=== PATIENT | female | born 1945 | race Caucasian/White ===

== ENCOUNTER 2016-12-30 21:37 | Emergency (ER) | payer MEDICARE, MEDICAID ==
[~2016-12-30] VITALS: Ht 160 cm; Wt 100.7 kg
[~2016-12-30 21:37] MED LIST: /ESOM40CA; /GLIM4TA OR; /PANT40TA OR; AMLO5TAB2 PO; ASPI325T; ASPI325T OR; ASPI81TA63; CALC1TAB21 PO; CALCI-CHEW OR; CARB25TA PO; CIPR500T19 PO; CLOP75TA2 PO; ENAL10TA2 OR; FURO20TA2 PO; GARLIC OIL OR; GLUC1000 OR; GLUC500T3 OR; INSUDET SC; IRBE150T12 PO; IRON CR; LANTUS INSULIN; LASI20TA OR; LEVEMIR FLEXPEN SC; MAGN500T2 OR; METF1000 PO; MIRA3350 PO; OMEGA-3 FISH OIL OR; PANT40TA2 PO; PLAV75TA2; POTA10CA PO; RITA5TAB OR; RITALIN OR; ROPI0.5T PO; SIMV10TA2 PO; SIMV40TA2 OR; SOTA80TA2 PO; SOTALOL OR; TRI-FLEX OR; VICT18IN SC; VIT D OR; VIT E OR; [UNRECOGNIZED DRUG - OTHER] OR; ciprofloxacin OR; ritalin OR
[2016-12-30] MEDS ORDERED: MORPHINE 4 MG/ML 1ML SYRINGE IV ONE (23:00)
--- NOTE | 2016-12-30 23:50 | REPUSA ---
CT of the head Clinical history: Headache. Trauma. Protocol: Multiple axial CT images obtained with 5 mm slice thickness were obtained through the head without administration of contrast. Comparison: 03/19/2016 Findings: The ventricles and sulci are symmetric but prominent in size bilaterally. There are periven tricular areas of low attenuation throughout the deep white matter. There is no evidence of acute hem orrhage or infarct. There is no midline shift, mass effect, or extra-axial fluid collection. The osse ous structures are unremarkable. The visualized paranasal sinuses and mastoid air cells are clear. Impression: No acute hemorrhage or infarct. Findings are consistent with moderate age-related atrophy and chronic small vessel ischemic disease.
--- NOTE | 2016-12-30 23:50 | REPUSA ---
CT of the cervical spine Clinical history: Pain. Fall. Technique: Multiple axial CT images were obtained through the cervical spine without administration o f contrast. Coronal and sagittal 3-D reconstructed images were also obtained. Comparison: None. Findings: The cervical vertebral bodies are in satisfactory positioning and alignment. No fractures or dislocat ions are demonstrated. Congenital unfused anterior arch of C1 is noted. The odontoid process is inta ct. There is moderate degenerative disc disease at C5/C6 and C6/C7. Intervertebral disc spaces are ot herwise well-maintained. There is no evidence of facet subluxation. The neural foramen appear grossly patent. The cervical cranial junction is intact. The cervical spinal canal demonstrates normal calib er and contour without evidence of spinal stenosis. The surrounding soft tissues are within normal li mits. Impression: No acute fracture or traumatic injury. Mild spondylosis as described.
[2016-12-31 00:11] LABS: BASO % 0.2 % (0.0-1.0); EOS # 0.1 K/mm3 (0.0-0.50); EOS % 0.7 % (0.0-3.0); LARGE UNSTAINED CELL # 0.1 K/mm3 (0.0-0.4); LYMPH # 0.8 K/mm3 (1.5-4.5); LYMPH % 8.3 % (24.0-44.0); MEAN CORPUSCULAR HEMOGLOBIN 28.7 pg (27.0-33.0); MEAN CORPUSCULAR HGB CONC 32.4 g/dl (32.0-36.5); MEAN CORPUSCULAR VOLUME 88.6 fl (80.0-96.0); MONO # 0.4 K/mm3 (0.0-0.8); MONO % 4.2 % (0.0-5.0); NEUTROPHILS # 7.9 K/mm3 (1.8-7.7); NEUTROPHILS % 85.6 % (36.0-66.0); PLATELET COUNT, AUTOMATED 113 k/mm3 (150-450); RED CELL DISTRIBUTION WIDTH 16.2 % (11.5-14.5); WHITE BLOOD COUNT 9.3 K/mm3 (4.0-10.0)
[2016-12-31] MEDS ORDERED: MORPHINE 4 MG/ML 1ML SYRINGE IV ONE (00:15)
[2016-12-31 00:50] LABS: ANION GAP 11 MEQ/L (8-16); BLOOD UREA NITROGEN 15 MG/DL (7-18); CALCIUM LEVEL 8.7 MG/DL (8.8-10.2); CARBON DIOXIDE LEVEL 22 MEQ/L (21-32); CHLORIDE LEVEL 107 MEQ/L (98-107); CREATININE FOR GFR 0.73 MG/DL (0.55-1.02); GLOMERULAR FILTRATION RATE > 60.0 (>39); GLUCOSE, FASTING 214 MG/DL (83-110); SODIUM LEVEL 140 MEQ/L (136-145)
--- NOTE | 2016-12-31 01:30 | REPUSA ---
CT of the pelvis with contrast Clinical statement: Pain. Trauma. Technique: Multiple axial CT images were obtained from the iliac crests through the floor of the pelv is utilizing 5 mm axial slices after administration of oral and nonionic intravenous contrast. [place] l and sagittal reconstructions were also obtained. No comparison is available. Findings: There is severe comminuted, displaced fractures of the right acetabulum, involving the anterior, medi al, and posterior rider of the right hip joint. The fracture extending superiorly through the right i liac bone. The right proximal femur is subluxed superiorly into the right acetabulum. Large amount of surrounding soft tissue swelling is noted. No discrete femoral fracture is identified. Diffuse osteo penia is appreciated. The left hip joint appears unremarkable. The sacroiliac joints are within nelly l limits. There is a 9 mm anterior spondylolisthesis of L5 upon S1, caused by bilateral pars interart icularis defects. The bowel is unremarkable, with no obstructive or inflammatory changes. The urinary bladder is within normal limits. The other pelvic structures appear grossly intact. There is no evid ence of pelvic lymphadenopathy or ascites. . Impression: . 1. Comminuted, displaced fractures of the right acetabulum and right iliac bone, involving the anteri or, medial, and posterior rider of the right hip joint. Superior subluxation of the right femur into the acetabulum is noted. Soft tissue swelling around the right hip joint is also appreciated. 2. The left hip joint appears unremarkable.
--- NOTE | 2016-12-31 01:30 | REPUSA ---
CT of the right hip without contrast Clinical statement: Pain. Trauma. Technique: Multiple axial CT images were obtained with 5 mm cuts th rough the right hip without administration of contrast. Coronal and sagittal reconstructions were als o obtained. No comparison is available. Findings: There is a severe, comminuted fracture of the right pelvis involving the right iliac bone a nd right acetabulum. Displaced fractures involving the anterior, medial, and posterior rider of the r ight acetabulum are appreciated, with superior subluxation of the right femur into the hip joint. Obl ique fracture is seen extend superiorly into the right iliac bone is well. The proximal femur is mynor sly unremarkable. The joint space is narrowed. A small joint effusion is noted. Surrounding soft tiss ue swelling is appreciated. Impression: Severely comminuted, displaced fractures of the right acetabulum and right iliac bone as described. S uperior subluxation and impaction of the right femur is noted, although no fracture within the femur is appreciated at this time.
[2016-12-31] MEDS: MORPHINE 4 MG/ML 1ML SYRINGE IV PRN ×2 (02:21→03:22)
[2016-12-31 03:35] VITALS: BP 142/77
--- NOTE | 2016-12-31 08:14 | REP ---
Clinical: Trauma. Technique: AP view of the pelvis with neutral and frog lateral views of the right hip. Findings: Age-related osteopenia and degenerative changes are appreciated. Medial displacement of the femoral head in relation to the acetabulum suggests poorly defined underlying fractures involving the acetabulum including iliac, ischium and likely pubic bones. Impression: Suspected fractures involving the right acetabulum and associated iliac, ischium and pubic bones. Signed by Kip Chen MD 12/31/2016 08:06 A
--- NOTE | 2016-12-31 08:16 | REP ---
Clinical: Trauma. Technique: AP and frog lateral views of the right femur. Findings: The femur appears intact. Acute fractures involving the acetabulum including the pubic, ischium and iliac bones are poorly identified. Impression: Right femur intact. Comminuted fractures involving the acetabulum suspected. Signed by Kip Chen MD 12/31/2016 08:07 A
== END 2016-12-31 03:39 | disposition short-term general hospital (02) ==
LOC: EDBD 21:37 → M ED 23:42
DX: S32.401A Unspecified fracture of right acetabulum, initial encounter for closed fracture (principal); S32.301A Unspecified fracture of right ilium, initial encounter for closed fracture; W18.11XA Fall from or off toilet without subsequent striking against object, initial encounter; Y92.012 Bathroom of single-family (private) house as the place of occurrence of the external cause; Y93.89 Activity, other specified; Y99.8 Other external cause status; E11.9 Type 2 diabetes mellitus without complications; I10 Essential (primary) hypertension; I50.9 Heart failure, unspecified; G20 Parkinson's disease; Z79.899 Other long term (current) drug therapy; Z79.84 Long term (current) use of oral hypoglycemic drugs; Z79.4 Long term (current) use of insulin; Z88.0 Allergy status to penicillin; Z88.8 Allergy status to other drugs, medicaments and biological substances